=== PATIENT | male | born 1945 ===

== ENCOUNTER 2025-04-23 14:42 | Outpatient (CLI) | payer MEDICARE, SELFPAY ==
--- NOTE | ~2025-04-23 | XR_ITS ---
EXAMINATION: XR chest 2V, 04/23/2025 14:54 [employer]CE[employer]IST HISTORY: Cough COMPARISON: No comparisons available. Technique: 2 views obtained. Findings: Mild pulmonary venous congestion. No pneumothorax. Mild cardiomegaly. Mediastinal and hilar contours are within normal limits. Bony thorax no acute abnormality. Impression: Mild CHF Reviewed, dictated and finalized at location P. N BIOLOGIST Impression: Mild CHF
== END 2025-04-23 14:43 | disposition home or self-care (01) ==
LOC: MICIMG 14:48
PROVIDERS: PCP Internal Medicine Pulmonary Disease; Visit Provider Internal Medicine Pulmonary Disease
DX: R05.9 Cough, unspecified (principal); I50.9 Heart failure, unspecified
CPT/HCPCS: 71046